=== PATIENT | female | born 1960 | race Caucasian/White ===

== ENCOUNTER 2025-04-19 15:59 | Emergency (ER) | payer MEDICARE, MEDICAID ==
[~2025-04-19] VITALS: Ht 157.5 cm; Wt 79.0 kg
[2025-04-19] MEDS ORDERED: LANTUS SOL100 UNIT/1 SUB-Q (16:46)
[2025-04-19] MEDS ORDERED: FENOFIBRATE160 MG PO (16:47)
[2025-04-19] MEDS ORDERED: HYDROCHLOROTH12.5 M1 PO (16:47)
[2025-04-19] MEDS ORDERED: LOSARTAN POTASS50 MG PO (16:47)
[2025-04-19] MEDS ORDERED: METOPROLOL TART25 MG PO (16:48)
[2025-04-19] MEDS ORDERED: METFORMIN HCL1000 MG PO (16:48)
[2025-04-19] MEDS ORDERED: FARXIGA10 MG PO (16:49)
[2025-04-19] MEDS ORDERED: TIMOLOL MALEATE5 M2 (16:50)
[2025-04-19] MEDS ORDERED: LATANOPROST2.5 ML OPTH (16:50)
[2025-04-19] MEDS ORDERED: BRIMONIDINE TART5 ML (16:50)
[2025-04-19 17:29] LABS: BASOPHILS 0.1 % (0.1-1.2); EOSINOPHILS 1.5 % (0.7-5.8); LYMPHOCYTES 3.8 % (19.3-51.7); MCH 30.0 PG (25.6-32.2); MCHC 33.0 g/dL (32.2-35.5); MCV 90.8 fL (79.4-94.8); MONOCYTES 7.3 % (4.7-12.5); NEUTROPHILS 87.1 % (34.0-71.1); RBC 4.47 M/uL (3.93-5.22)
[2025-04-19 17:50] LABS: ALT (SGPT) 23.0 U/L (14-59); AST (SGOT) 22.0 U/L (15-37); GLOMERULAR FILTRATION RATE,EST 25.0 mL/min (>60); PROTEIN, TOTAL 8.6 g/dL (6.4-8.2); UREA NITROGEN 64.0 mg/dL (7-18)
[2025-04-19] MEDS ORDERED: SODIUM CHLORIDE 0.9% 1,000 ML IV PRN (18:00)
[2025-04-19 18:07] LABS: BLOOD/HGB, URINE NEGATIVE (Negative); KETONE, URINE TRACE (Negative); LEUK ESTERASE, URINE NEGATIVE (negative); NITRITE, URINE POSITIVE (negative)
[2025-04-19 18:12] LABS: BACTERIA, URINE 2+ /hpf (negative); CASTS, URINE NONE SEEN \\lpf; CRYSTALS, URINE NONE SEEN (0-1+); EPITHELIAL CELLS, URINE NONE SEEN /lpf (0-1+); REFLEX CULTURE, URINE Yes (No)
[2025-04-19] MEDS ORDERED: MACROBID 100 M100 MG PO (18:27)
[2025-04-19] MEDS ORDERED: ONDANSETRON ODT4 MG PO (18:27)
[2025-04-19] MEDS ORDERED: VAZALORE81 MG PO (18:28)
[2025-04-19] MEDS ORDERED: ONDANSETRON 4 MG HOME.PACK SL ONE (18:45)
[2025-04-19 20:30] VITALS: BP 126/54
--- NOTE | 2025-04-19 21:48 | EKG ---
[facility] [address] [facility] [place] [address] Signed Normal sinus rhythm Left axis deviation Minimal voltage criteria for LVH, may be normal variant ( Ponder product ) Inferior infarct , age undetermined Abnormal ECG No previous ECGs available Confirmed by Adithya Uriostegui MD () on 04/19/2025 9:48:21 PM Electronically Signed By: ADITHYA URIOSTEGUI MD 04/19/25 2148 PATIENT NAME: JOSEPH ROACH Electrocardiogram DATE OF : 56 PHYSICIAN: ADITHYA URIOSTEGUI MD REPORT #: [id number] REPORT IS CONFIDENTIAL AND NOT TO BE RELEASED WITHOUT AUTHORIZATION
== END 2025-04-19 20:31 | disposition home or self-care (01) ==
LOC: ED 15:59
PROVIDERS: Emergency Medicine
DX: N39.0 Urinary tract infection, site not specified (principal); I25.10 Atherosclerotic heart disease of native coronary artery without angina pectoris; E11.9 Type 2 diabetes mellitus without complications; I10 Essential (primary) hypertension; E78.00 Pure hypercholesterolemia, unspecified; I25.2 Old myocardial infarction; Z95.1 Presence of aortocoronary bypass graft; Z88.2 Allergy status to sulfonamides; Z88.0 Allergy status to penicillin; Z88.1 Allergy status to other antibiotic agents; Z88.5 Allergy status to narcotic agent; Z79.4 Long term (current) use of insulin; Z79.82 Long term (current) use of aspirin; Z79.84 Long term (current) use of oral hypoglycemic drugs; Z79.899 Other long term (current) drug therapy
CPT/HCPCS: 36415; 80053; 81001; 83690; 83735; 84484; 85025; 87088; 93005; 93010; 96361; 96374; 96376; 99284-25; A9270; J2405; J7030